=== PATIENT | male | born 1990 | race Caucasian/White ===

== ENCOUNTER 2016-05-18 20:09 | Emergency (ER) | payer MEDICAID ==
[~2016-05-18] VITALS: Ht 177.8 cm; Wt 102.7 kg
[2016-05-18] MEDS ORDERED: ALBU8HFA IH (20:18)
[2016-05-18 22:48] VITALS: BP 124/81
[2016-05-18] MEDS ORDERED: ACETAMINOPHEN 500 MG TABLET PO ONE (23:00)
== END 2016-05-18 22:55 | disposition home or self-care (01) ==
LOC: EMS 20:11
DX: S05.8X2A Other injuries of left eye and orbit, initial encounter (principal); J45.909 Unspecified asthma, uncomplicated; X58.XXXA Exposure to other specified factors, initial encounter; Y93.89 Activity, other specified; Y92.9 Unspecified place or not applicable; Y99.9 Unspecified external cause status
CPT/HCPCS: 70200; 99284